=== PATIENT | female | born 1960 | race Caucasian/White ===

== ENCOUNTER 2016-07-03 13:21 | Emergency (ER) | payer BC ==
[2016-07-03] MEDS ORDERED: KETOROLAC 60 MG/2 ML VIAL IM STA (15:03)
--- NOTE | 2016-07-03 15:06 | ED Physician Documentation ---
PD HPI UPPER EXT INJURY - Stated complaint Stated Complaint: SHOULDER PX - Chief complaint Chief Complaint: Ext Problem - History obtained from History obtained from: Patient - History of Present Illness Location: Right, Shoulder Type of injury: Other (states threw a juniper briceno and then flexed her muscles, felt a pop and now increased pain.) Where injury occurred: Home Timing - onset: Today Timing - duration: Hours (1) Timing - details: Abrupt onset Pain level max: 8 Pain level now: 8 Improved by: Rest, Ice, Immobilization Worsened by: Moving, Palpating Associated symptoms: No: Weakness, Numbness, Tingling, Swelling Contributing factors: No: Anticoagulated, Prior ortho surgery, Prosthetic joint Similar symptoms before: Has not had sx before Recently seen: Not recently seen Review of Systems Constitutional: denies: Fever Skin: denies: Rash Musculoskeletal: denies: Neck pain, Back pain Neurologic: denies: Focal weakness, Numbness, Headache PD PAST MEDICAL HISTORY - Past Medical History Past Medical History: Yes Musculoskeletal: Other Derm: Other - Past Surgical History Past Surgical History: Yes General: Cholecystectomy, Appendectomy Ortho: Spine surgery /[employer]: Hysterectomy - Present Medications Home Medications: Ambulatory Orders Medication Instructions Recorded Confirmed Cyclobenzaprine [Flexeril] 10 mg PO TID PRN #20 tablet 07/03/16 Hydrocodone/Acetaminophen 1 - 2 each PO Q6H PRN #14 tablet 07/03/16 [Hydrocodon-Acetaminophen 5-325] - Allergies Allergies/Adverse Reactions: Allergies Allergy/AdvReac Type Severity Reaction Status Date / Time citalopram hydrobromide * AdvReac Severe Hives Verified 07/03/16 13:40 [From Celexa] prochlorperazine maleate * AdvReac Intermediate Anxiety Verified 07/03/16 13:40 [From Compazine] - Social History Does the pt smoke?: No Smoking Status: Never smoker Does the pt drink ETOH?: No Does the pt have substance abuse?: No - Immunizations Immunizations are current?: Yes - POLST Patient has POLST: No PD ED PE NORMAL - Vitals Vital signs reviewed: Yes - General General: Alert and oriented X 3, No acute distress - Neck Neck: Supple, no meningeal sign - Cardiac Cardiac: RRR - Respiratory Respiratory: No respiratory distress, Clear bilaterally - Derm Derm: Warm and dry - Extremities Extremities: Other (R shoulder - Diffuse glenohumeral joint TTP. Very limited ROM 2/2 pain. NVI. No gross deformity.) - Neuro Neuro: Alert and oriented X 3 - Psych Psych: Normal mood, Normal affect Results - Vitals Vitals: Vital Signs - 24 hr 07/03/16 07/03/16 13:35 15:41 Temperature 36.6 C 36.6 C Heart Rate 67 63 Respiratory 18 16 Rate Blood Pressure 147/98 H 138/70 H O2 Saturation 99 98 Oxygen O2 Source Room air - Rads (name of study) R shoulder xray Radiology: Prelim report reviewed, EMP read contemporaneously, See rad report ( Normal shoulder radiography. ) PD MEDICAL DECISION MAKING - ED course Complexity details: reviewed results, re-evaluated patient, considered differential, d/w patient ED course: Patient is a 56-year-old female who presents to the emergency department with an acute right shoulder injury. Multiple possibilities, but as her exam is severely limited secondary to pain, will place her in a sling and on pain medication for home and have her reexamined once the swelling decreases. No acute findings on x-ray. Neurovascularly intact. Possible rotator cuff injury , possible tendon tear? Patient counseled regarding signs and symptoms for which I believe and urgent re-evaluation would be necessary. Patient with good understanding of and agreement to plan and is comfortable going home at this time This document was made in part using voice recognition software. While efforts are made to proofread this document, sound alike and grammatical errors may occur. Departure - Departure Disposition: 01 Home, Self Care Clinical Impression: Shoulder strain Qualifiers: Encounter type: initial encounter Laterality: right Qualified Code(s): S46.911A - Strain of unspecified muscle, fascia and tendon at shoulder and upper arm level, right arm, initial encounter Condition: Good Instructions: ED Sprain Shoulder Follow-Up: Love Britt PA-C [Primary Care Provider] - Within 1 week Prescriptions: Cyclobenzaprine [Flexeril] 10 mg PO TID PRN #20 tablet PRN Reason: Spasms Hydrocodone/Acetaminophen [Hydrocodon-Acetaminophen 5-325] 1 - 2 each PO Q6H PRN #14 tablet PRN Reason: pain Comments: Return if you worsen. Wear the sling for the next 3-4 days and then start to gently move her shoulder. It is important that you have a repeat evaluation as the swelling and pain limit our evaluation today. Do not drink alcohol or drive while on narcotic pain medicine. Note that many narcotic pain relievers also contain tylenol/acetaminophen. Please ensure that your total dose of acetaminophen from all sources does not exceed 3 grams (3000mg) per day. You may constipated on this medication, take a stool softener such as "Colace" twice a day while you are on it. Also recommend a cmod-ydl-gffwkny laxative such as senna or MiraLAX any day that you do not have a bowel movement. If you received narcotic pain medication in the emergency department, do not drive or operate machinery for the next 24 hours. Discharge Date/Time: 07/03/16 16:09
[2016-07-03] MEDS ORDERED: KETOROLAC 60 MG/2 ML VIAL ONE (15:22)
--- NOTE | 2016-07-03 15:34 | XRAY Preliminary Report ---
Exam: XR Shoulder 3 View RT IMPRESSION: Normal shoulder radiography. [facility] SITE ID: [id number]
--- NOTE | 2016-07-03 15:38 | XRAY Report ---
EXAM: RIGHT SHOULDER RADIOGRAPHY EXAM DATE: 07/03/2016 02:59 PM. CLINICAL HISTORY: Patient lifted her arm above her head with sudden onset of pain and a "pop". COMPARISON: None. TECHNIQUE: 3 views. FINDINGS: Bones: Normal. No fracture or bone lesion. Joints: The glenohumeral and acromioclavicular joints are normal. Soft tissues: The visualized hemithorax is unremarkable. No soft tissue swelling. IMPRESSION: Normal shoulder radiography. [facility] Referring Provider Line: [phone] SITE ID: [id number]
[2016-07-03 15:44] VITALS: BP 138/70
== END 2016-07-03 16:09 | disposition home or self-care (01) ==
LOC: ED 13:21
DX: S46.911A Strain of unspecified muscle, fascia and tendon at shoulder and upper arm level, right arm, initial encounter (principal); X50.0XXA Overexertion from strenuous movement or load, initial encounter
CPT/HCPCS: 96372; 99283

== ENCOUNTER 2016-07-11 15:47 | Outpatient (CLI) | payer OTHER, BC ==
[2016-07-11] MEDS ORDERED: GADOBUTROL 10 MMOL/10 ML SYRINGE IVP ONE (16:51)
--- NOTE | 2016-07-11 18:35 | MRI Report ---
EXAM: MRI LUMBAR SPINE WITHOUT AND WITH CONTRAST EXAM DATE: 07/11/2016 04:00 PM. CLINICAL HISTORY: 56-year-old with prior lumbar surgery presenting with back pain COMPARISONS: None. TECHNIQUE: Multiplanar, multisequence T1-weighted and fluid-sensitive sequences of the lumbar spine f rom T12 to S1 before and after administration of intravenous contrast. IV contrast: 9 cc GADAVIST. Ot her: None. FINDINGS: Spinal Cord: The conus terminates at L1-2. No signal abnormality in the visualized spinal cord. Alignment: There is grade 1 anterolisthesis of L5 on S1. No definite scoliotic curvature. Bone Marrow: Five mvz-vmd-nuevjxo lumbar vertebral bodies are assumed. There are postsurgical changes of L4-S1 posterior spinal instrumentation fusion as well as L4-S1 laminectomy. There are bilateral L 4, L5, and S1 pedicle screws is associated susceptibility artifact but technically limits evaluation of the surrounding tissues. There is also lack of fat saturation due to the metallic screws that tech nically limited evaluation of fat-saturated sequences. There appears to be bony fusion of L5 on S1. There is mild to moderate endplate degenerative changes seen at L4-L5. No definite bone marrow edema seen. No definite abnormal marrow enhancement. No acute fracture. Disk Levels/Facets: T12-L1: No significant endplate degenerative changes. Preservation of disk height. Slight disk desicc ation. No disk protrusion or spinal canal stenosis. No neural foraminal narrowing. L1-L2: No significant endplate degenerative changes. Preservation of disk height. Slight disk desicca tion. No significant disk protrusion or spinal canal stenosis. No neural foraminal narrowing. Minimal bilateral arthritic facet disease. L2-L3: No significant endplate degenerative changes. Disk height appears preserved. Slight disk desic cation. No disk protrusion or spinal canal stenosis. No neural foraminal narrowing. Mild bilateral ar thritic facet disease. L3-L4: Minimal endplate degenerative changes. Diskitis preserved. Disk desiccation. Small posterior d isk bulge as well as ligamentum flavum thickening, facet disease, and prominent dorsal epidural fat p roducing minimal spinal canal stenosis. No definite neural foraminal narrowing. L4-L5: Mild to moderate atelectatic changes with loss of disk height and disk desiccation. Surgical d ecompression of the thecal sac. There is a non-enhancing fluid collection seen within the surgical be d that measures 3.3 x 4.1 x 0.5 cm (CC by TR by AP). The fluid collection has minimal extension into the lateral epidural space. There is no spinal canal stenosis. No definite enhancing soft tissue seen within the ventral epidural space, lateral epidural space, or neural foramina. Evaluation of the she ral foramina is limited but appears to be mild bilateral neural foraminal narrowing with no significa nt mass effect on the exiting L4 nerve roots. L5-S1: . Fusion of the endplates. Surgical decompression of the thecal sac. Uncovering of the endplat e. Slight posterior disk bulge is slight effacement of ventral thecal sac. As detailed above there is a fluid collection seen within the surgical bed that extends to the dorsal epidural space with sligh t extension into the lateral epidural spaces. No definite enhancing soft tissue seen within the ventr al epidural space, neural foramina, or lateral epidural space. No spinal canal stenosis. There appear s to be moderate bilateral neural foraminal narrowing. Spinal Canal: No enhancing masses within the spinal canal. No epidural abscess. Musculature: There is extensive fatty atrophy of the paraspinal musculature beginning at L4 and exten ding to the sacrum, greater on the left. There is edema seen within the musculature it is likely post surgical in nature. Other: The visualized pelvic cavity is unremarkable. IMPRESSION: 1. Post surgical changes of L4-S1 posterior spinal instrumented fusion and L4-L5 and L5-S1 laminectom y. Bilateral pedicle screws are seen at L4, L5, and S1 with associated susceptibility artifact that t echnically limits evaluation. 2. There is nonenhancing fluid collection seen within the surgical bed that measures 3.3 x 4.1 x 0.5 cm (cc by TRV by AP) that extends to the dorsal epidural space of L4-L5 and L5-S1 with slight extensi on into the lateral epidural space. There is no mass effect on the thecal sac. No convincing evidence of postsurgical epidural fibrosis. 3. At L4-L5 there are surgical changes with no definite spinal canal stenosis seen. Evaluation of the neural foramina is limited due to susceptibility artifact but there appears to be mild bilateral she roforaminal narrowing. 4. At L5-S1 there are surgical changes with no definite spinal canal stenosis seen. Evaluation of the neuroforamina is limited due to susceptibility artifact, but there appears to be moderate bilateral neural foraminal narrowing. 5. Remainder of lumbar spine demonstrates no significant spinal canal stenosis or neural foraminal na rrowing. Comment: The following findings are so common in adults without low back pain that while we report th eir presence, they must be interpreted with caution and in the context of the clinical situation. (Re sandra Cullen et al, Spine 2001) Prevalence of findings in patients without low back pain: Disk degeneration (any evidence): 92% Disk desiccation/T2 signal loss: 83% Disk height loss: 56% Disk bulge: 64% Disk protrusion: 32% Annular tear/high intensity zone: 38% [facility] Referring Provider Line: [phone] SITE ID: [id number]
== END 2016-07-11 15:48 | disposition home or self-care (01) ==
LOC: DI 15:47
PROVIDERS: ATTEND Physician Assistant Medical
DX: M47.896 Other spondylosis, lumbar region (principal); M51.36 Other intervertebral disc degeneration, lumbar region; Z98.1 Arthrodesis status
CPT/HCPCS: 72158; A9585

== ENCOUNTER 2016-11-10 17:03 | Outpatient (CLI) | payer BC, OTHER ==
--- NOTE | 2016-11-10 19:17 | CT Preliminary Report ---
Exam: CT Head W/O IMPRESSION: No acute intracranial CT abnormality. There is no evidence of hemorrhage or mass effect. [facility] SITE ID: [id number]
--- NOTE | 2016-11-10 19:20 | CT Report ---
EXAM: CT HEAD EXAM DATE: 11/10/2016 05:27 PM. CLINICAL HISTORY: HEADACHE. COMPARISON: 08/24/2015. TECHNIQUE: Multiaxial CT images were obtained from the foramen magnum to the vertex. IV contrast: Non e. Reformats: Coronal. In accordance with CT protocol optimization, one or more of the following dose reduction techniques w ere utilized for this exam: automated exposure control, adjustment of mA and/or KV based on patient s ize, or use of iterative reconstructive technique. FINDINGS: Parenchyma: No intraparenchymal hemorrhage. No evidence of mass, midline shift, or CT findings of inf arction. Pichardo-white differentiation is distinct. Extraaxial Spaces: Normal for age. No subdural or epidural collections identified. Ventricles: Normal in size and position. Sinuses: Imaged paranasal sinuses, orbits, and mastoids show no significant abnormality. Bones: No evidence of fracture or calvarial defect. Other: None. IMPRESSION: No acute intracranial CT abnormality. There is no evidence of hemorrhage or mass effect. [facility] Referring Provider Line: [phone] SITE ID: [id number]
== END 2016-11-10 17:04 | disposition home or self-care (01) ==
LOC: DI 17:03
PROVIDERS: ATTEND Physician Assistant Medical
DX: R51 Headache (principal)
CPT/HCPCS: 70450

== ENCOUNTER 2017-03-30 12:04 | Outpatient (CLI) | payer BC ==
[2017-03-30 12:28] LABS: BASOPHILS % (AUTO) 0.5 %; EOSINOPHILS # (AUTO) 0.1 10^3/uL (0.0-0.7); EOSINOPHILS % (AUTO) 1.7 %; LYMPHOCYTES # (AUTO) 1.8 10^3/uL (1.5-3.5); LYMPHOCYTES % (AUTO) 31.4 %; MEAN CORPUSCULAR HEMOGLOBIN 29.5 pg (27.0-31.0); MEAN CORPUSCULAR HGB CONC 34.2 g/dL (32.0-36.0); MEAN CORPUSCULAR VOLUME 86.4 fL (81.0-99.0); MEAN PLATELET VOLUME 8.1 fL (7.9-10.8); MONOCYTES # (AUTO) 0.3 10^3/uL (0.0-1.0); MONOCYTES % (AUTO) 5.3 %; NEUTROPHILS # (AUTO) 3.5 10^3/uL (1.5-6.6); NEUTROPHILS % (AUTO) 61.1 %; PLT - PLATELET COUNT 195 10^3/uL (130-450); RED BLOOD COUNT 4.73 10^6/uL (4.20-5.40); RED CELL DISTRIBUTION WIDTH 13.4 % (12.0-15.0); WHITE BLOOD COUNT 5.7 x10^3/uL (4.8-10.8)
[2017-03-30 12:51] LABS: ALBUMIN 4.5 g/dL (3.2-5.5); ALBUMIN/GLOBULIN RATIO 1.5 (1.0-2.2); ALKALINE PHOSPHATASE 56 IU/L (42-121); ALT ALANINE AMINOTRANSFERASE 26 IU/L (10-60); AST ASPARTATE AMINOTRANSFERASE 24 IU/L (10-42); BILIRUBIN,TOTAL 0.6 mg/dL (0.2-1.0); BUN - BLOOD UREA NITROGEN 11 mg/dL (6-20); CALCIUM 9.7 mg/dL (8.5-10.3); CARBON DIOXIDE - CO2 22 mmol/L (21-32); CHLORIDE 106 mmol/L (101-111); CHOL/HDL RATIO 3.5 (<4.4); CHOLESTEROL 220 mg/dL; CREATININE 0.6 mg/dL (0.4-1.0); GFR - MDRD 104 (>89); GLUCOSE 111 mg/dL (70-100); HDL CHOLESTEROL 63 mg/dL; LDL CHOLESTEROL,CALCULATED 130 mg/dL; LDL/HDL RATIO 2.1 (<4.4); SODIUM 139 mmol/L (135-145); TOTAL PROTEIN 7.6 g/dL (6.7-8.2); VLDL CHOLESTEROL 27 mg/dL
[2017-03-31 13:03] LABS: HEPATITIS C ANTIBODY NON-REACTIVE (NON-REACTIVE)
== END 2017-03-30 12:05 | disposition home or self-care (01) ==
LOC: LAB 12:04
PROVIDERS: ATTEND Physician Assistant Medical
DX: Z00.00 Encounter for general adult medical examination without abnormal findings (principal); F32.9 Major depressive disorder, single episode, unspecified; Z11.59 Encounter for screening for other viral diseases; Z72.89 Other problems related to lifestyle
CPT/HCPCS: 36415; 80053; 80061; 82306; 83721; 84443; 85025; 86803

== ENCOUNTER 2017-04-06 11:35 | Outpatient (CLI) | payer BC ==
--- NOTE | 2017-04-07 19:13 | Mammography Report ---
DIGITAL SCREENING MAMMOGRAM: 04/06/2017 CLINICAL INDICATION: A 57-year-old nulliparous patient for screening. COMPARISON: 08/2015, 02/2010. TECHNIQUE: Routine CC and MLO projections were obtained of the breasts. FINDINGS: Scattered fibroglandular tissue is present within the breasts. There are no dominant masses, suspicious microcalcifications, or secondary signs of malignancy. In comparison to the previous studies, there are no significant changes. ASSESSMENT: NO MAMMOGRAPHIC EVIDENCE OF MALIGNANCY. NO SIGNIFICANT INTERVAL CHANGES. RECOMMENDATION: Screening mammography is recommended annually. BIRADS category 1 - negative. STANDARD QUALIFYING STATEMENTS: 1. This examination was reviewed with the aid of Computed-Aided Detection (CAD). 2. A negative or benign imaging report should not delay biopsy if clinically suspicious findings are present. Consider surgical consultation if warranted. More than 5% of cancers are not identified by imaging. 3. Dense breasts may obscure an underlying neoplasm. TD: 04/07/2017 19:11
== END 2017-04-06 11:36 | disposition home or self-care (01) ==
LOC: DI 11:35
PROVIDERS: ATTEND Physician Assistant Medical
DX: Z12.31 Encounter for screening mammogram for malignant neoplasm of breast (principal)
CPT/HCPCS: 77067

== ENCOUNTER 2017-05-14 06:54 | Day surgery (SDC) | payer BC ==
[2017-05-14] MEDS ORDERED: LACTATED RINGERS 1,000 ML IV ONE (07:07)
[2017-05-14] MEDS ORDERED: PROPOFOL 200 MG/20 ML VIAL IVP ONE (09:00)
[2017-05-14 09:37] VITALS: BP 114/73
== END 2017-05-14 06:55 | disposition home or self-care (01) ==
LOC: SDS 06:54
PROVIDERS: ATTEND Surgery
PROC: 0DBH8ZX Excision of Cecum, Via Natural or Artificial Opening Endoscopic, Diagnostic (ICD-10-PCS; principal; 2017-05-14 08:15)
DX: Z12.11 Encounter for screening for malignant neoplasm of colon (principal); K63.5 Polyp of colon; K64.8 Other hemorrhoids; K57.30 Diverticulosis of large intestine without perforation or abscess without bleeding
CPT/HCPCS: 45380; J7120

== ENCOUNTER 2017-07-24 12:36 | Emergency (ER) | payer BC ==
--- NOTE | 2017-07-24 14:54 | ED Physician Documentation ---
History of Present Illness - Stated complaint Stated Complaint: FACE SWELLING/RASH - Chief complaint Chief Complaint: General - History obtained from History obtained from: Patient - History of Present Illness Timing: Last night Pain level max: 3 Pain level now: 3 Improved by: nothing Worsened by: movement, itching - Additonal information Additional information: Patient is a 57-year-old female who presents to the emergency department with an itching face and neck since last night. Has not taken anything for this. She also has noted swelling and pain to the right hand. Has been gardening recently. Tetanus is up-to-date. She was recently trialed on Epiduo for skin blemishes. 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 - Present Medications Home Medications: Ambulatory Orders Medication Instructions Recorded Confirmed Gabapentin [Neurontin] 300 mg PO TID 05/13/17 05/13/17 Doxycycline Hyclate 100 mg PO BID #14 tablet 07/24/17 predniSONE [Prednisone] 40 mg PO DAILY #10 tablet 07/24/17 - Allergies Allergies/Adverse Reactions: Allergies Allergy/AdvReac Type Severity Reaction Status Date / Time citalopram hydrobromide * AdvReac Severe Hives Verified 07/24/17 13:13 [From Celexa] prochlorperazine maleate * AdvReac Intermediate Anxiety Verified 07/24/17 13:13 [From Compazine] - Social History Does the pt smoke?: No Smoking Status: Never smoker Does the pt drink ETOH?: No Does the pt have substance abuse?: No - Immunizations Immunizations are current?: Yes - POLST Patient has POLST: No PD ED PE NORMAL - Vitals Vital signs reviewed: Yes - General General: Alert and oriented X 3, No acute distress - HEENT HEENT: Moist mucous membranes, Pharynx benign - Neck Neck: Supple, no meningeal sign, No adenopathy - Cardiac Cardiac: RRR, Strong equal pulses - Respiratory Respiratory: No respiratory distress, Clear bilaterally, Other (No stridor. No wheezing) - Abdomen Abdomen: Soft, Non tender, Non distended - Derm Derm: Warm and dry, Other (Excoriation melendez with mild erythema to the face and neck. Appears to have maculopapular exanthem. Also has swelling to the right hand over the dorsum. No palmar tenderness. Full range of motion of the fingers without significant pain. No tenderness along the tendons. Neurovascularly intact. There is a small abrasion near the wrist.) - Extremities Extremities: No deformity - Neuro Neuro: Alert and oriented X 3 Results - Vitals Vitals: Vital Signs - 24 hr 07/24/17 07/24/17 13:09 15:05 Temperature 36.4 C L 36.4 C L Heart Rate 60 60 Respiratory 18 17 Rate Blood Pressure 134/67 H 103/88 H O2 Saturation 97 96 Oxygen O2 Source Room air PD MEDICAL DECISION MAKING - ED course Complexity details: considered differential, d/w patient ED course: Patient is a 57-year-old female who presents to the emergency department what appears to be contact dermatitis to the face and neck. Her pillowcase was also discolored and she thinks it may be something from that. Will trial her on steroids for home. She also appears to have swelling of the right hand with an abrasion, possible cellulitis? No evidence of deep space infection in the hand. We will trial her on a short course of antibiotics and see how she progresses. Her tetanus is up-to-date. We will have her follow-up with her doctor for repeat evaluation and further care. Patient counseled regarding signs and symptoms for which I believe and urgent re-evaluation would be necessary. Patient with good understanding of and agreement to plan and is comfortable going home at this time This document was made in part using voice recognition software. While efforts are made to proofread this document, sound alike and grammatical errors may occur. - Sepsis Event Vital Signs: Vital Signs - 24 hr 07/24/17 07/24/17 13:09 15:05 Temperature 36.4 C L 36.4 C L Heart Rate 60 60 Respiratory 18 17 Rate Blood Pressure 134/67 H 103/88 H O2 Saturation 97 96 Oxygen O2 Source Room air Departure - Departure Disposition: 01 Home, Self Care Clinical Impression: Contact dermatitis Qualifiers: Contact dermatitis type: unspecified Contact dermatitis trigger: unspecified trigger Qualified Code(s): L25.9 - Unspecified contact dermatitis, unspecified cause Cellulitis Qualifiers: Site of cellulitis: extremity Site of cellulitis of extremity: upper extremity Laterality: right Qualified Code(s): L03.113 - Cellulitis of right upper limb Condition: Good Instructions: ED Infec Skin Cellulitis, ED Dermatitis Non Specific Rash Follow-Up: Love Britt PA-C [Primary Care Provider] - Within 3 Days (for wound check) Prescriptions: Doxycycline Hyclate 100 mg PO BID #14 tablet predniSONE [Prednisone] 40 mg PO DAILY #10 tablet Comments: Take all antibiotics until gone. Return if you worsen. Follow-up with your doctor in 3 days for a wound check. Discharge Date/Time: 07/24/17 15:05
[2017-07-24 15:06] VITALS: BP 103/88
== END 2017-07-24 15:05 | disposition home or self-care (01) ==
LOC: ED 12:36
DX: L25.9 Unspecified contact dermatitis, unspecified cause (principal); L03.113 Cellulitis of right upper limb; M79.7 Fibromyalgia
CPT/HCPCS: 99283

== ENCOUNTER 2017-10-22 09:53 | Outpatient (CLI) | payer BC ==
[2017-10-22 10:19] LABS: BILIRUBIN,URINE NEGATIVE (NEGATIVE); GLUCOSE, URINE (UA) NEGATIVE (NEGATIVE); KETONES,URINE (UA) NEGATIVE (NEGATIVE); LEUKOCYTE ESTERASE, URINE NEGATIVE (NEGATIVE); NITRITE,URINE NEGATIVE (NEGATIVE); OCCULT BLOOD,URINE SMALL (NEGATIVE); PROTEIN,URINE NEGATIVE (NEGATIVE); UROBILINOGEN,URINE 0.2 (NORMAL) E.U./dL (NORMAL)
[2017-10-22 10:22] LABS: BASOPHILS % (AUTO) 0.5 %; EOSINOPHILS # (AUTO) 0.1 10^3/uL (0.0-0.7); EOSINOPHILS % (AUTO) 1.7 %; HGB - HEMOGLOBIN 13.5 g/dL (12.0-16.0); LYMPHOCYTES # (AUTO) 2.3 10^3/uL (1.5-3.5); MEAN CORPUSCULAR HEMOGLOBIN 29.9 pg (27.0-31.0); MEAN CORPUSCULAR HGB CONC 34.4 g/dL (32.0-36.0); MEAN CORPUSCULAR VOLUME 86.9 fL (81.0-99.0); MEAN PLATELET VOLUME 8.3 fL (7.9-10.8); MONOCYTES # (AUTO) 0.4 10^3/uL (0.0-1.0); MONOCYTES % (AUTO) 6.1 %; NEUTROPHILS % (AUTO) 57.7 %; PLT - PLATELET COUNT 208 10^3/uL (130-450); RED BLOOD COUNT 4.53 10^6/uL (4.20-5.40); RED CELL DISTRIBUTION WIDTH 13.7 % (12.0-15.0); WHITE BLOOD COUNT 6.9 x10^3/uL (4.8-10.8)
[2017-10-22 10:50] LABS: ALBUMIN 4.7 g/dL (3.2-5.5); ALBUMIN/GLOBULIN RATIO 1.6 (1.0-2.2); ALKALINE PHOSPHATASE 63 IU/L (42-121); ALT ALANINE AMINOTRANSFERASE 21 IU/L (10-60); AST ASPARTATE AMINOTRANSFERASE 22 IU/L (10-42); BILIRUBIN,TOTAL 0.6 mg/dL (0.2-1.0); BUN - BLOOD UREA NITROGEN 15 mg/dL (6-20); CALCIUM 9.5 mg/dL (8.5-10.3); CARBON DIOXIDE - CO2 27 mmol/L (21-32); CHLORIDE 100 mmol/L (101-111); CREATININE 0.8 mg/dL (0.4-1.0); GFR - MDRD 74 (>89); GLUCOSE 109 mg/dL (70-100); LIPASE 30 U/L (22-51); SODIUM 136 mmol/L (135-145); TOTAL PROTEIN 7.7 g/dL (6.7-8.2)
[2017-10-22 10:51] LABS: CLARITY,URINE CLEAR (CLEAR); RBC,URINE 0-5 /HPF (0-5); SQUAMOUS EPITHELIAL CELL,UR RARE Squamous (<= Few)
[2017-10-22 10:51] LABS: CRP - C-REACTIVE PROTEIN < 1.0 mg/dL (0-1.0)
[2017-10-22 10:52] LABS: BACTERIA,URINE Rare /HPF (None Seen)
== END 2017-10-22 09:54 | disposition home or self-care (01) ==
LOC: LAB 09:53
PROVIDERS: ATTEND Physician Assistant Medical
DX: R10.32 Left lower quadrant pain (principal)
CPT/HCPCS: 36415; 80053; 81001; 83690; 85025; 85651; 86140; 87086

== ENCOUNTER 2017-10-22 11:42 | Outpatient (CLI) | payer BC ==
[2017-10-22] MEDS ORDERED: IOPAMIDOL-300 50 ML VIAL ONE (11:44)
[2017-10-22] MEDS ORDERED: IOPAMIDOL-300 100 ML VIAL ONE (11:44)
--- NOTE | 2017-10-22 14:06 | CT Report ---
Reason: NAUSEA AND VOMITING,ABDOMINAL PAIN,LEFT LOWER QUAD Procedure Date: 10/22/2017 Accession Number: [id number] / [id number] Procedure: CT - Abdomen/Pelvis W/ CPT Code: FULL RESULT: EXAM: CT ABDOMEN AND PELVIS EXAM DATE: 10/22/2017 01:33 PM. CLINICAL HISTORY: NAUSEA AND VOMITING,ABDOMINAL PAIN,LEFT LOWER QUAD. COMPARISONS: CT ABD AND PELVIS WITH CONTRAST 05/23/2012. TECHNIQUE: Routine helical CT imaging was performed through the abdomen and pelvis. IV contrast: ISOVUE 300 100mL. Enteric contrast: Yes. Reconstructions: Coronal and sagittal. In accordance with CT protocol optimization, one or more of the following dose reduction techniques were utilized for this exam: automated exposure control, adjustment of mA and/or KV based on patient size, or use of iterative reconstructive technique. FINDINGS: Lung Bases: Unremarkable. Liver: Diffusely decreased parenchymal attenuation. Stable 13 mm well-circumscribed hypodense lesion in the inferior tip of the right lobe. Gallbladder/Bile Ducts: The gallbladder is surgically absent. Normal postcholecystectomy biliary tree. Spleen: Normal. Pancreas: Normal. Adrenal Glands: Normal. 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 No left hydronephrosis or perinephric stranding. Mildly malrotated right kidney; otherwise no significant abnormality. Peritoneal Cavity/Bowel: No ascites or pneumoperitoneum. No bowel obstruction or abnormal stool burden. No focal inflammatory fat stranding. The appendix is not visualized. Pelvic Organs: The patient appears to be status post hysterectomy. The urinary bladder is unremarkable. Vasculature: No aneurysms or other significant abnormality. Bones: Posterior fusion L4-S1. Stable grade 1 anterolisthesis of L5 on S1. No acute osseous abnormality or aggressive osseous lesion. Other: None. IMPRESSION: 1. No evidence of acute abnormality in the abdomen or pelvis. No significant change from prior. 2. Hepatic steatosis. [facility]
[2017-10-22] MEDS ORDERED: IOPAMIDOL-300 100 ML VIAL IVP ONE (19:04)
[2017-10-22] MEDS ORDERED: IOPAMIDOL-300 50 ML VIAL PO ONE (19:04)
== END 2017-10-22 11:43 | disposition home or self-care (01) ==
LOC: DI 11:42
PROVIDERS: ATTEND Physician Assistant Medical
DX: R11.2 Nausea with vomiting, unspecified (principal); R10.32 Left lower quadrant pain; K76.0 Fatty (change of) liver, not elsewhere classified
CPT/HCPCS: 36415; 74177; 80053; 81001; 83690; 85025; 85651; 86140; Q9967; 87086

== ENCOUNTER 2018-04-01 11:20 | Outpatient (CLI) | payer BC ==
[2018-04-01 11:48] LABS: BASOPHILS # (AUTO) 0.2 10^3/uL (0.0-0.1); BASOPHILS % (AUTO) 3.1 %; EOSINOPHILS # (AUTO) 0.1 10^3/uL (0.0-0.7); EOSINOPHILS % (AUTO) 1.5 %; HGB - HEMOGLOBIN 14.3 g/dL (12.0-16.0); LYMPHOCYTES # (AUTO) 2.5 10^3/uL (1.5-3.5); LYMPHOCYTES % (AUTO) 31.1 %; MEAN CORPUSCULAR HEMOGLOBIN 29.7 pg (27.0-31.0); MEAN CORPUSCULAR HGB CONC 35.8 g/dL (32.0-36.0); MEAN CORPUSCULAR VOLUME 83.1 fL (81.0-99.0); MEAN PLATELET VOLUME 8.2 fL (7.9-10.8); MONOCYTES # (AUTO) 0.3 10^3/uL (0.0-1.0); MONOCYTES % (AUTO) 3.8 %; NEUTROPHILS # (AUTO) 4.8 10^3/uL (1.5-6.6); NEUTROPHILS % (AUTO) 60.5 %; PLT - PLATELET COUNT 203 10^3/uL (130-450); RED BLOOD COUNT 4.83 10^6/uL (4.20-5.40); RED CELL DISTRIBUTION WIDTH 13.2 % (12.0-15.0); WHITE BLOOD COUNT 7.9 x10^3/uL (4.8-10.8)
[2018-04-01 12:18] LABS: ALBUMIN 4.8 g/dL (3.2-5.5); ALBUMIN/GLOBULIN RATIO 1.5 (1.0-2.2); ALKALINE PHOSPHATASE 64 IU/L (42-121); ALT ALANINE AMINOTRANSFERASE 23 IU/L (10-60); AST ASPARTATE AMINOTRANSFERASE 22 IU/L (10-42); BUN - BLOOD UREA NITROGEN 19 mg/dL (6-20); CALCIUM 9.8 mg/dL (8.5-10.3); CARBON DIOXIDE - CO2 25 mmol/L (21-32); CHLORIDE 105 mmol/L (101-111); CHOL/HDL RATIO 2.9 (<4.4); CHOLESTEROL 225 mg/dL; CREATININE 0.6 mg/dL (0.4-1.0); GFR - MDRD 103 (>89); GLUCOSE 109 mg/dL (70-100); HDL CHOLESTEROL 77 mg/dL; LDL CHOLESTEROL,CALCULATED 118 mg/dL; LDL/HDL RATIO 1.5 (<4.4); SODIUM 138 mmol/L (135-145); TOTAL PROTEIN 8.1 g/dL (6.7-8.2); VLDL CHOLESTEROL 30 mg/dL
== END 2018-04-01 11:21 | disposition home or self-care (01) ==
LOC: LAB 11:20
PROVIDERS: ATTEND Physician Assistant Medical
DX: Z00.00 Encounter for general adult medical examination without abnormal findings (principal); E55.9 Vitamin D deficiency, unspecified; Z79.899 Other long term (current) drug therapy
CPT/HCPCS: 36415; 80053; 80061; 82306; 83721; 84443; 85025

== ENCOUNTER 2018-09-07 17:24 | Emergency (ER) | payer BC ==
[2018-09-07 17:44] VITALS: BP 162/94
[2018-09-07] MEDS ORDERED: carBAMazepine 200 MG TABLET PO STA (18:08)
--- NOTE | 2018-09-07 18:10 | ED Physician Documentation ---
History of Present Illness - Stated complaint Stated Complaint: PX BEHIND LF EAR - Chief complaint Chief Complaint: General - History obtained from History obtained from: Patient - History of Present Illness Timing: Yesterday (Since yesterday at 10 AM she has had intermittent left facial pain. Its shocklike burning pain radiating from the left mastoid sometimes down to the jaw or behind the eye. It lasts for 5 to 30 seconds at a time. It often comes in clusters. It is often triggered by something touching the face on the left. She had never had this before. 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 - Present Medications Home Medications: Ambulatory Orders Medication Instructions Recorded Confirmed Gabapentin [Neurontin] 300 mg PO TID 05/13/17 05/13/17 Doxycycline Hyclate 100 mg PO BID #14 tablet 07/24/17 predniSONE [Prednisone] 40 mg PO DAILY #10 tablet 07/24/17 Carbamazepine [Equetro] 200 mg PO BID #60 cpmp.12hr 09/07/18 - Allergies Allergies/Adverse Reactions: Allergies Allergy/AdvReac Type Severity Reaction Status Date / Time citalopram hydrobromide * AdvReac Severe Hives Verified 07/24/17 13:13 [From Celexa] prochlorperazine maleate * AdvReac Intermediate Anxiety Verified 07/24/17 13:13 [From Compazine] - Social History Does the pt smoke?: No Smoking Status: Never smoker Does the pt drink ETOH?: No Does the pt have substance abuse?: No - Immunizations Immunizations are current?: Yes - POLST Patient has POLST: No PD ED PE NORMAL - Vitals Vital signs reviewed: Yes - General General: Alert and oriented X 3, No acute distress - HEENT HEENT: PERRL, EOMI, Ears normal, Moist mucous membranes, Pharynx benign - Neck Neck: Supple, no meningeal sign, No bony TTP - Neuro Neuro: Alert and oriented X 3, rn womens health 2-12 intact, No motor deficit, No sensory deficit, Normal speech Results - Vitals Vitals: Vital Signs - 24 hr 09/07/18 17:41 Temperature 36.2 C L Heart Rate 65 Respiratory 16 Rate Blood Pressure 162/94 H O2 Saturation 98 Oxygen O2 Source Room air PD MEDICAL DECISION MAKING - ED course ED course: Exam is normal. The history is very consistent with new onset trigeminal neuralgia for which she is started on carbamazepine and referred to neurology. Departure - Departure Disposition: Home, Self Care Clinical Impression: Trigeminal neuralgia of left side of face Condition: Good Record reviewed to determine appropriate education?: Yes Instructions: ED Neuralgia Trigeminal Follow-Up: Kathy Mckinnon MD [Physician No Access] - Prescriptions: Carbamazepine [Equetro] 200 mg PO BID #60 cpmp.12hr Comments: You can start the carbamazepine at 200 mg twice a day, if that is insufficient to go up to 3 times a day. If that is insufficient go to 2 tablets (400 mg) twice a day. Return for new or worsening symptoms. Your blood pressure was elevated today on check into the emergency department. This does not mean that you have hypertension, it is a common phenomenon to come to the emergency department and have elevated blood pressure. I recommend that you see your primary care physician within the week to have it rechecked when you are feeling better.
== END 2018-09-07 18:20 | disposition home or self-care (01) ==
LOC: ED 17:24
DX: G50.0 Trigeminal neuralgia (principal); R03.0 Elevated blood-pressure reading, without diagnosis of hypertension
CPT/HCPCS: 99282; 99283; A9270

== ENCOUNTER 2018-10-27 15:44 | Outpatient (CLI) | payer BC ==
[2018-10-27] MEDS ORDERED: GADOBUTROL 10 MMOL/10 ML VIAL ONE (16:31)
[2018-10-27] MEDS ORDERED: GADOBUTROL 10 MMOL/10 ML VIAL IVP ONE (17:12)
--- NOTE | 2018-10-28 15:12 | MRI Report ---
Reason: PRIMARY STABBING HEADACHE Procedure Date: 10/27/2018 Accession Number: [id number] / [id number] Procedure: MRI - Brain W/WO CPT Code: FULL RESULT: EXAM: MRI BRAIN WITHOUT AND WITH CONTRAST EXAM DATE: 10/27/2018 05:04 PM. CLINICAL HISTORY: Stabbing headache. Previous diagnosis with MRI of a cavernous malformation in the left parietal lobe. COMPARISON: BRAIN W/WO 08/24/2015 5:15 PM. TECHNIQUE: Multiplanar, multisequence T1-weighted and fluid-sensitive MR sequences of the brain were performed before and after administration of intravenous contrast. Sequences optimized for routine evaluation. Other: None. IV Contrast: Without and with 10 mL IV Gadavist. FINDINGS: Brain Volume: Normal for age. Parenchyma: Stable approximately 5 mm left parietal lobe white matter nodule with susceptibility artifact most consistent with cavernous malformation. No significant interval change. No evidence for new hemorrhage or accompanying edema. Otherwise stable unremarkable appearance of the brain. No new or acute abnormality. No abnormal enhancement. Ventricles/Cisterns: No hydrocephalus. No abnormal extra-axial fluid collection or hemorrhage. Orbits: Symmetric and unremarkable. Sella Turcica: The pituitary gland, cavernous sinuses, suprasellar cistern and optic chiasm are unremarkable. IAC: Symmetric and unremarkable. Vasculature: Normal signal flow void is seen in the major arterial structures at the skull base. The dural sinuses are patent and enhance normally. Sinuses: No acute sinus disease. Bones: No focal pathologic appearing marrow signal changes. Other: None. IMPRESSION: 1. 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 2. Findings otherwise negative and stable. RADIA
== END 2018-10-27 15:45 | disposition home or self-care (01) ==
LOC: DI 15:44
PROVIDERS: ATTEND Psychiatry & Neurology Neurology
DX: G44.85 Primary stabbing headache (principal)
CPT/HCPCS: 70553; A9585

== ENCOUNTER 2018-11-28 14:18 | Emergency (ER) | payer BC ==
[2018-11-28] MEDS ORDERED: HYDROcod/ACETAM 5/325 MG TABLET PO STA (14:39)
[2018-11-28] MEDS ORDERED: IPRATROPIUM/ALBUTEROL 3 ML NEB INH STA (14:39)
--- NOTE | 2018-11-28 14:42 | ED Physician Documentation ---
PD HPI CHEST PAIN - Stated complaint Stated Complaint: WISDOM/PRESSURE IN CHEST - Chief complaint Chief Complaint: Resp - History obtained from History obtained from: Patient - History of Present Illness Timing - onset: Other (58-year-old woman with long-standing history of tobacco abuse but no known history of heart or lung disease presents with a week and a half of a productive cough that is keeping her from sleeping and causing bilateral rib pain and a headache. No fevers. She is short of breath with exertion.) Review of Systems Constitutional: reports: Fatigue. 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 - Present Medications Home Medications: Ambulatory Orders Medication Instructions Recorded Confirmed Gabapentin [Neurontin] 300 mg PO TID 05/13/17 05/13/17 Doxycycline Hyclate 100 mg PO BID #14 tablet 07/24/17 predniSONE [Prednisone] 40 mg PO DAILY #10 tablet 07/24/17 Carbamazepine [Equetro] 200 mg PO BID #60 cpmp.12hr 09/07/18 Albuterol Sulf [Ventolin Hfa 1 - 2 puffs INH Q4HR PRN #1 inhaler 11/28/18 Inhaler] Benzonatate [Tessalon Perle] 100 - 200 mg PO TID PRN #30 capsule 11/28/18 Doxycycline Hyclate 100 mg PO BID #14 capsule 11/28/18 Oxycodone HCl/Acetaminophen 1 - 2 each PO Q6H PRN #14 tablet 11/28/18 [Percocet 5-325 mg Tablet] predniSONE [Deltasone] 20 mg PO [id number] #21 tab 11/28/18 - Allergies Allergies/Adverse Reactions: Allergies Allergy/AdvReac Type Severity Reaction Status Date / Time citalopram hydrobromide * AdvReac Severe Hives Verified 11/28/18 14:22 [From Celexa] prochlorperazine maleate * AdvReac Intermediate Anxiety Verified 11/28/18 14:22 [From Compazine] - Social History Does the pt smoke?: Yes Smoking Status: Current every day smoker Does the pt drink ETOH?: Yes Does the pt have substance abuse?: No - Immunizations Immunizations are current?: Yes - POLST Patient has POLST: No PD ED PE NORMAL - Vitals Vital signs reviewed: Yes - General General: Alert and oriented X 3, No acute distress - HEENT HEENT: Pharynx benign - Neck Neck: Supple, no meningeal sign, No bony TTP - Cardiac Cardiac: RRR, No murmur - Respiratory Respiratory: Other (Rhonchorous and wheezy throughout with moderate air motion, nonlabored) - Abdomen Abdomen: Non tender - Back Back: No CVA TTP, No spinal TTP - Extremities Extremities: No edema, No calf tenderness / cord - Neuro Neuro: Alert and oriented X 3, Normal speech Results - Vitals Vitals: Vital Signs - 24 hr 11/28/18 11/28/18 11/28/18 14:22 14:46 16:16 Temperature 36.7 C Heart Rate 62 65 62 Respiratory 16 16 20 Rate Blood Pressure 158/95 H 145/93 H O2 Saturation 96 96 Oxygen O2 Source Room air - Rads (name of study) 2v chest Radiology: EMP read contemporaneously (normal) PD MEDICAL DECISION MAKING - ED course ED course: 58-year-old woman presents with physical findings and history consistent with bronchitis. No evidence of PE or ACS. [place] better after a DuoNeb and lungs were clear. Departure - Departure Disposition: 01 Home, Self Care Clinical Impression: Bronchitis Condition: Good Record reviewed to determine appropriate education?: Yes Instructions: ED Bronchitis Asthmatic Prescriptions: Albuterol Sulf [Ventolin Hfa Inhaler] 1 - 2 puffs INH Q4HR PRN #1 inhaler PRN Reason: Shortness Of Air/Wheezing Benzonatate [Tessalon Perle] 100 - 200 mg PO TID PRN #30 capsule PRN Reason: Cough Doxycycline Hyclate 100 mg PO BID #14 capsule Oxycodone HCl/Acetaminophen [Percocet 5-325 mg Tablet] 1 - 2 each PO Q6H PRN #14 tablet PRN Reason: pain predniSONE [Deltasone] 20 mg PO [id number] #21 tab Comments: Continue your efforts to try to quit smoking. Return if worse. Follow-up with your doctor within the week. Your blood pressure was elevated today on check into the emergency department. This does not mean that you have hypertension, it is a common phenomenon to come to the emergency department and have elevated blood pressure. I recommend that you see your primary care physician within the week to have it rechecked when you are feeling better. Discharge Date/Time: 11/28/18 16:18
--- NOTE | 2018-11-28 15:28 | XRAY Report ---
Reason: cough Procedure Date: 11/28/2018 Accession Number: [id number] / [id number] Procedure: XR - Chest 2 View X-Ray CPT Code: 89553 FULL RESULT: EXAM: CHEST RADIOGRAPHY EXAM DATE: 11/28/2018 02:47 PM. CLINICAL HISTORY: Cough. COMPARISON: CHEST 2 VIEW PA/LAT 05/12/2013 6:43 PM. TECHNIQUE: 2 views. FINDINGS: Lungs/Pleura: No focal opacities evident. No pleural effusion. No pneumothorax. Normal volumes. Mediastinum: Heart and mediastinal contours are unremarkable. Other: Right upper quadrant clips IMPRESSION: Normal 2-view chest radiography. RADIA
[2018-11-28] MEDS ORDERED: KETOROLAC 60 MG/2 ML VIAL IM STA (15:34)
[2018-11-28] MEDS ORDERED: MORPHINE 2 MG/ML CARPUJECT IM STA (15:34)
[2018-11-28 16:17] VITALS: BP 145/93
== END 2018-11-28 16:18 | disposition home or self-care (01) ==
LOC: ED 14:18
DX: J40 Bronchitis, not specified as acute or chronic (principal); R03.0 Elevated blood-pressure reading, without diagnosis of hypertension; F17.200 Nicotine dependence, unspecified, uncomplicated
CPT/HCPCS: 71046; 94640; 96372; 99283; A9270

== ENCOUNTER 2019-12-19 10:49 | Outpatient (CLI) | payer BC ==
[2019-12-19 15:29] LABS: BASOPHILS # (AUTO) 0.1 10^3/uL (0.0-0.1); BASOPHILS % (AUTO) 0.8 %; EOSINOPHILS # (AUTO) 0.1 10^3/uL (0.0-0.7); EOSINOPHILS % (AUTO) 1.2 %; LYMPHOCYTES # (AUTO) 2.6 10^3/uL (1.5-3.5); LYMPHOCYTES % (AUTO) 40.7 %; MEAN CORPUSCULAR HEMOGLOBIN 30.1 pg (27.0-31.0); MEAN CORPUSCULAR HGB CONC 33.1 g/dL (32.0-36.0); MEAN PLATELET VOLUME 11.4 fL (7.9-10.8); MONOCYTES # (AUTO) 0.4 10^3/uL (0.0-1.0); MONOCYTES % (AUTO) 6.4 %; NEUTROPHILS # (AUTO) 3.3 10^3/uL (1.5-6.6); NEUTROPHILS % (AUTO) 50.6 %; PLT - PLATELET COUNT 221 10^3/uL (130-450); RED BLOOD COUNT 4.65 10^6/uL (4.20-5.40); WHITE BLOOD COUNT 6.4 x10^3/uL (4.8-10.8)
[2019-12-19 15:43] LABS: ALBUMIN 4.6 g/dL (3.2-5.5); ALBUMIN/GLOBULIN RATIO 1.4 (1.0-2.2); BILIRUBIN,TOTAL 0.7 mg/dL (0.2-1.0); CALCIUM 10.1 mg/dL (8.5-10.3); CREATININE 0.8 mg/dL (0.4-1.0); TOTAL PROTEIN 7.9 g/dL (6.7-8.2)
--- NOTE | 2019-12-19 16:22 | XRAY Report ---
PROCEDURE: Lumbar Spine 2 View INDICATIONS: BACK PAIN TECHNIQUE: 3 views of the lumbar spine were acquired. COMPARISON: None. FINDINGS: Bones: 5 [id number] vertebrae are present. There is trace anterolithesis of L4 on L5 and L5 on S1. Posterior fusion is present at L4-S1. Severe disc space narrowing is present at L4-5, L5-S1.No vertebral body compression fractures. No suspicious bony lesions. Severe foraminal narrowing is pr esent at L4-5, L5-S1. Soft tissues: Overlying bowel gas pattern is normal. No suspicious soft tissue calcifications. IMPRESSION: Posterior fusion at L4-S1 with degenerative changes as above. Reviewed by: Lenore Huizar MD on 12/19/2019 4:21 PM PST Approved by: Lenore Huizar MD on 12/19/2019 4:21 PM PST Station ID: [id number]
== END 2019-12-19 10:50 | disposition home or self-care (01) ==
LOC: DI.S 10:49
PROVIDERS: ATTEND Internal Medicine
DX: Z00.00 Encounter for general adult medical examination without abnormal findings (principal); M43.16 Spondylolisthesis, lumbar region; M43.17 Spondylolisthesis, lumbosacral region; M43.27 Fusion of spine, lumbosacral region; M51.36 Other intervertebral disc degeneration, lumbar region; M48.061 Spinal stenosis, lumbar region without neurogenic claudication; M51.37 Other intervertebral disc degeneration, lumbosacral region; M48.07 Spinal stenosis, lumbosacral region
CPT/HCPCS: 36415; 72100; 80053; 85025

== ENCOUNTER 2020-02-21 13:11 | Outpatient (CLI) | payer BC | END 2020-02-21 13:12 | disposition home or self-care (01) | LOC: COV 13:11 | PROVIDERS: ATTEND Family Medicine | DX: M79.10 Myalgia, unspecified site (principal); R53.83 Other fatigue; R68.83 Chills (without fever); R11.0 Nausea; Z20.822 Contact with and (suspected) exposure to COVID-19 ==

== ENCOUNTER 2020-05-28 15:22 | Outpatient (CLI) | payer BC ==
--- NOTE | 2020-05-28 17:00 | XRAY Report ---
PROCEDURE: Thoracic Spine 3 View INDICATIONS: BACK PAIN,THORACIC REGION TECHNIQUE: 3 views of the thoracic spine were acquired. COMPARISON: None. FINDINGS: Bones: No fractures or dislocations. No suspicious bony lesions. Mild degenerative endplate changes are noted in mid to lower thoracic spine. 12 pairs of ribs are noted, and appear intact where visual ized. Soft tissues: No paravertebral stripe thickening. 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 No compression fracture or spondylolisth esis. Reviewed by: Neal Hernandez MD on 05/28/2020 3:58 PM AKDT Approved by: Neal Hernandez MD on 05/28/2020 3:58 PM AKDT Station ID: [id number]
--- NOTE | 2020-05-28 17:17 | XRAY Report ---
PROCEDURE: Cervical Spine w/Flex/Ext INDICATIONS: CERVICAL DISC DISORDERS WITH RADICULOPATHY, CERVIC TECHNIQUE: 7 views of the cervical spine were acquired. COMPARISON: None. FINDINGS: Bones: No fractures or dislocations to the T1 level. No suspicious bony lesions. There is normal r kandis of motion between flexion and extension, with preserved normal bony alignment. Soft tissues: Prevertebral soft tissues are normal in thickness. IMPRESSION: Minimal mid cervical degenerative disc height reduction. No fracture or subluxation. Nor mal-appearing alignment on flexion and extension imaging. No prior trauma found. Reviewed by: Miguel Herman MD on 05/28/2020 5:16 PM PDT Approved by: Miguel Herman MD on 05/28/2020 5:16 PM PDT Station ID: [id number]
== END 2020-05-28 15:23 | disposition home or self-care (01) ==
LOC: DI.S 15:22
PROVIDERS: ATTEND Registered Nurse
DX: M50.30 Other cervical disc degeneration, unspecified cervical region (principal); M51.34 Other intervertebral disc degeneration, thoracic region

== ENCOUNTER 2021-04-17 08:00 | Outpatient (CLI) | payer BC ==
--- NOTE | 2021-04-18 09:48 | XRAY Report ---
PROCEDURE: Hand 3 View LT INDICATIONS: SPRAIN OF LEFT THUMB TECHNIQUE: 3 views of the hand(s) acquired. COMPARISON: None. FINDINGS: Bones: No fractures or dislocations. No suspicious bony lesions. Mild polyarticular joint space na rrowing with particular osteophyte formation. No erosive changes. Soft tissues: No suspicious soft tissue calcifications. IMPRESSION: No fracture or dislocation. Reviewed by: KHALIF Kurtz on 04/18/2021 9:47 AM PST Approved by: Sadiq Rizo MD on 04/18/2021 9:47 AM PST Station ID: [id number]
== END 2021-04-17 23:59 | disposition home or self-care (01) ==
LOC: DI.S 08:00
PROVIDERS: ATTEND Emergency Medicine
DX: S63.642A Sprain of metacarpophalangeal joint of left thumb, initial encounter (principal)

== ENCOUNTER 2021-06-28 08:00 | Outpatient (CLI) | payer BC ==
--- NOTE | 2021-06-29 02:24 | XRAY Report ---
PROCEDURE: Chest 2 View X-Ray INDICATIONS: THORACIC BACK PAIN/TOBACCO USE TECHNIQUE: 2 view(s) of the chest. COMPARISON: 11/30/2018. FINDINGS: Surgical changes and devices: None. Lungs and pleura: No pleural effusions or pneumothorax. Lungs are clear. Mediastinum: Mediastinal contours are normal. Heart size is normal. Bones and chest wall: No suspicious bony abnormalities. Soft tissues appear unremarkable. IMPRESSION: 1. No acute cardiopulmonary disease. Reviewed by: Dyllan Feng MD on 06/29/2021 2:22 AM PDT Approved by: Dyllan Feng MD on 06/29/2021 2:22 AM PDT Station ID: [id number]
== END 2021-06-28 23:59 | disposition home or self-care (01) ==
LOC: DI.S 08:00
PROVIDERS: ATTEND Registered Nurse
DX: M54.6 Pain in thoracic spine (principal); F17.200 Nicotine dependence, unspecified, uncomplicated

== ENCOUNTER 2021-08-07 08:40 | Outpatient (CLI) | payer BC ==
--- NOTE | 2021-08-08 07:49 | Mammography Report ---
BILATERAL DIGITAL SCREENING MAMMOGRAM 3D/2D: 08/07/2021 CLINICAL: Routine screening. Comparison is made to exams dated: 04/06/2017 mammogram and 08/23/2015 mammogram - [facility]. There are scattered fibroglandular elements in both breasts. No significant masses, calcifications, or other findings are seen in either breast. There has been no significant interval change. IMPRESSION: NEGATIVE There is no mammographic evidence of malignancy. A 1 year screening mammogram is recommended. This exam was interpreted at Station ID: [id number]. NOTE: For mammograms, a report in lay terms will be sent to the patient. Approximately 15% of breast malignancies will not be visualized mammographically. In the management of a palpable breast mass, a negative mammogram must not discourage biopsy of a clinically suspicious lesion. Electronically Signed By: Christiano gaspar/margi:08/07/2021 09:58:12 ACR BI-RADS Category 1: Negative 3341F PARENCHYMAL PATTERN: (A) - The breast(s) demonstrate(s) scattered fibroglandular densities. BI-RADS CATEGORY: (1) - 1 RECOMMENDATION: (ANNUAL) - Recommend routine annual screening mammography. [id number] 1 year screening LATERALITY: (B)
== END 2021-08-07 08:41 | disposition home or self-care (01) ==
LOC: DI.S 08:40
PROVIDERS: ATTEND Registered Nurse
DX: Z12.31 Encounter for screening mammogram for malignant neoplasm of breast (principal)

== ENCOUNTER 2021-11-20 10:25 | Emergency (ER) | payer BC ==
[2021-11-20 10:45] VITALS: BP 140/101
[2021-11-20 11:21] LABS: BASOPHILS # (AUTO) 0.1 10^3/uL (0.0-0.1); BASOPHILS % (AUTO) 0.4 %; EOSINOPHILS # (AUTO) 0.1 10^3/uL (0.0-0.7); EOSINOPHILS % (AUTO) 0.9 %; HCT - HEMATOCRIT 42.5 % (37.0-47.0); HGB - HEMOGLOBIN 14.4 g/dL (12.0-16.0); LYMPHOCYTES # (AUTO) 2.5 10^3/uL (1.5-3.5); LYMPHOCYTES % (AUTO) 21.5 %; MEAN CORPUSCULAR HEMOGLOBIN 30.1 pg (27.0-31.0); MEAN CORPUSCULAR HGB CONC 33.9 g/dL (32.0-36.0); MEAN CORPUSCULAR VOLUME 88.7 fL (81.0-99.0); MEAN PLATELET VOLUME 9.8 fL (7.9-10.8); MONOCYTES # (AUTO) 0.5 10^3/uL (0.0-1.0); NEUTROPHILS # (AUTO) 8.5 10^3/uL (1.5-6.6); NEUTROPHILS % (AUTO) 72.9 %; PLT - PLATELET COUNT 213 10^3/uL (130-450); RED BLOOD COUNT 4.79 10^6/uL (4.20-5.40); RED CELL DISTRIBUTION WIDTH 12.8 % (12.0-15.0); WHITE BLOOD COUNT 11.6 x10^3/uL (4.8-10.8)
[2021-11-20 11:33] LABS: ALBUMIN 4.5 g/dL (3.2-5.5); ALBUMIN/GLOBULIN RATIO 1.4 (1.0-2.2); BILIRUBIN,TOTAL 0.8 mg/dL (0.2-1.0); CALCIUM 9.8 mg/dL (8.5-10.3); CREATININE 0.8 mg/dL (0.4-1.0); POTASSIUM 3.7 mmol/L (3.5-5.0); TOTAL PROTEIN 7.7 g/dL (6.7-8.2)
[2021-11-20 11:49] LABS: BILIRUBIN,URINE NEGATIVE (NEGATIVE); GLUCOSE, URINE (UA) NEGATIVE (NEGATIVE); KETONES,URINE (UA) NEGATIVE (NEGATIVE); LEUKOCYTE ESTERASE, URINE SMALL (NEGATIVE); NITRITE,URINE NEGATIVE (NEGATIVE); OCCULT BLOOD,URINE SMALL (NEGATIVE); PROTEIN,URINE NEGATIVE (NEGATIVE); UROBILINOGEN,URINE 0.2 (NORMAL) E.U./dL (NORMAL)
[2021-11-20 11:50] LABS: CLARITY,URINE CLEAR (CLEAR)
--- NOTE | 2021-11-20 11:50 | XRAY Report ---
PROCEDURE: Knee 4 View RT INDICATIONS: Trauma TECHNIQUE: 4 views of the right knee(s) were acquired. COMPARISON: None. FINDINGS: Bones: No fractures or dislocations. No suspicious bony lesions. Medial knee hemiarthroplasty is p resent. Hardware is intact without evidence of hardware fracture or periprosthetic lucency to suggest loosening. Soft tissues: Mild joint effusion. No suspicious soft tissue calcifications. IMPRESSION: No visualized acute fracture or dislocation. However, occult injury cannot be excluded. Recommend inez rt interval imaging follow-up in 7-10 days as clinically indicated for additional evaluation. Reviewed by: Lenore Huizar MD on 11/20/2021 11:49 AM PDT Approved by: Lenore Huizar MD on 11/20/2021 11:49 AM PDT Station ID: [id number]
[2021-11-20 12:08] LABS: BACTERIA,URINE Few /HPF (None Seen); MUCUS,URINE Few Strands; SQUAMOUS EPITHELIAL CELL,UR FEW Squamous (<= Few); WBC,URINE >25 /HPF (0-5)
[2021-11-20] MEDS ORDERED: SODIUM CHLORIDE 0.9% 1,000 ML IV STA (12:58)
[2021-11-20] MEDS ORDERED: LIDOCAINE 1%-EPI 1:100000 20 ML MDV SUBQ STA (12:58)
[2021-11-20] MEDS ORDERED: HYDROmorphone 1 MG/ML CARPUJECT IVP STA ×2 (12:58→15:06)
[2021-11-20] MEDS ORDERED: cefTRIAXone 1 GM in SODIUM CHLORIDE 0.9% MINIBAG 100 ML IV STA (12:59)
--- NOTE | 2021-11-20 13:00 | ED Physician Documentation ---
History of Present Illness - Stated complaint Stated Complaint: R KNEE SWOLLEN - Chief complaint Chief Complaint: General - History obtained from History obtained from: Patient - Additonal information Additional information: She is 7 years out from a right knee replacement, medial approach only. She had a dental cleaning about a week ago with a single dose of prophylactic antibiotic, sounds like Keflex per her prescription description. Starting today she has had both right flank pain that is severe as well as right knee pain and swelling that is severe with chills and a headache. She took 2 negative to test for COVID at home today. Review of Systems Constitutional: reports: Chills. 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 - Present Medications Home Medications: Ambulatory Orders Medication Instructions Recorded Confirmed Gabapentin [Neurontin] 300 mg PO TID 05/13/17 05/13/17 Doxycycline Hyclate 100 mg PO BID #14 tablet 07/24/17 predniSONE [Prednisone] 40 mg PO DAILY #10 tablet 07/24/17 Carbamazepine [Equetro] 200 mg PO BID #60 cpmp.12hr 09/07/18 Albuterol Sulf [Ventolin Hfa 1 - 2 puffs INH Q4HR PRN #1 inhaler 11/28/18 Inhaler] Benzonatate [Tessalon Perle] 100 - 200 mg PO TID PRN #30 capsule 11/28/18 Doxycycline Hyclate 100 mg PO BID #14 capsule 11/28/18 Oxycodone HCl/Acetaminophen 1 - 2 each PO Q6H PRN #14 tablet 11/28/18 [Percocet 5-325 mg Tablet] predniSONE [Deltasone] 20 mg PO [id number] #21 tab 11/28/18 - Allergies Allergies/Adverse Reactions: Allergies Allergy/AdvReac Type Severity Reaction Status Date / Time citalopram hydrobromide * AdvReac Severe Hives Verified 11/20/21 10:45 [From Celexa] prochlorperazine maleate * AdvReac Intermediate Anxiety Verified 11/20/21 10:45 [From Compazine] - Social History Does the pt smoke?: Yes Smoking Status: Current every day smoker Does the pt drink ETOH?: Yes Does the pt have substance abuse?: No - Immunizations Immunizations are current?: Yes - POLST Patient has POLST: No PD ED PE NORMAL - Vitals Vital signs reviewed: Yes - General General: Alert and oriented X 3, No acute distress - Abdomen Abdomen: Non tender, Other (Right flank tenderness) - Extremities Extremities: Other (The right knee is warm but not hot with limited range of motion due to pain, but I am able to range it. There is a small effusion.) - Neuro Neuro: Alert and oriented X 3, Normal speech Results - Vitals Vitals: Vital Signs - 24 hr 11/20/21 10:38 Temperature 36.5 C Heart Rate 83 Respiratory 16 Rate Blood Pressure 140/101 H O2 Saturation 98 Oxygen O2 Source Room air - Labs Labs: Microbiology 11/20/21 13:35 Body Fluid Culture - Preliminary Synovial Fluid Laboratory Tests 11/20/21 11/20/21 11/20/21 11:17 11:17 11:40 WBC 11.6 H RBC 4.79 Hgb 14.4 Hct 42.5 MCV 88.7 MCH 30.1 MCHC 33.9 RDW 12.8 Plt Count 213 MPV 9.8 Neut # (Auto) 8.5 H Lymph # (Auto) 2.5 [place] # (Auto) 0.5 Eos # (Auto) 0.1 Baso # (Auto) 0.1 Absolute Nucleated RBC 0.00 Nucleated RBC % 0.0 Sodium 137 Potassium 3.7 Chloride 103 Carbon Dioxide 25 Anion Gap 9.0 BUN 17 Creatinine 0.8 Estimated GFR (MDRD) 73 L Glucose 104 H Calcium 9.8 Total Bilirubin 0.8 AST 23 ALT 27 Alkaline Phosphatase 56 Total Protein 7.7 Albumin 4.5 Globulin 3.2 Albumin/Globulin Ratio 1.4 Lipase 31 Urine Color LT. YELLOW Urine Clarity CLEAR Urine pH 6.0 Ur Specific [place] >=1.030 H Urine Protein NEGATIVE Urine Glucose (UA) NEGATIVE Urine Ketones NEGATIVE Urine Occult Blood SMALL H Urine Nitrite NEGATIVE Urine Bilirubin NEGATIVE Urine Urobilinogen 0.2 (NORMAL) Ur Leukocyte Esterase SMALL H Urine RBC 6-10 H Urine WBC >25 H Ur Squamous Epith Cells FEW Squamous Urine Bacteria Few Urine Mucus Few Strands Ur Microscopic Review INDICATED Urine Culture Comments INDICATED Fluid Source Fluid Color Fluid Clarity Fluid WBC Fluid RBC Fluid Neutrophils % Fluid Lymphocytes % Fluid Monocytes % Fld Mesothelial Cell % Fluid Crystals 11/20/21 11/20/21 13:35 13:35 WBC RBC Hgb Hct MCV MCH MCHC RDW Plt Count MPV Neut # (Auto) Lymph # (Auto) [place] # (Auto) Eos # (Auto) Baso # (Auto) Absolute Nucleated RBC Nucleated RBC % Sodium Potassium Chloride Carbon Dioxide Anion Gap BUN Creatinine Estimated GFR (MDRD) Glucose Calcium Total Bilirubin AST ALT Alkaline Phosphatase Total Protein Albumin Globulin Albumin/Globulin Ratio Lipase Urine Color Urine Clarity Urine pH Ur Specific [place] Urine Protein Urine Glucose (UA) Urine Ketones Urine Occult Blood Urine Nitrite Urine Bilirubin Urine Urobilinogen Ur Leukocyte Esterase Urine RBC Urine WBC Ur Squamous Epith Cells Urine Bacteria Urine Mucus Ur Microscopic Review Urine Culture Comments Fluid Source KNEE Fluid Color YELLOW Fluid Clarity CLOUDY Fluid WBC [id number] Fluid RBC 4000 Fluid Neutrophils % 92 Fluid Lymphocytes % 3 Fluid Monocytes % 5 Fld Mesothelial Cell % 0 Fluid Crystals NONE SEEN Procedures - Arthrocentesis Joint: Knee, Right Preparation: Sterile prep and drape Anesthesia: Lidocaine 1% Fluid: Sent for cell count, Cloudy, Sent for crystals, Sent for culture, Fluid obtained - cc (8ml) PD MEDICAL DECISION MAKING - ED course ED course: 61-year-old woman presents with flank pain and also knee pain starting yesterday with some systemic symptoms but normal vital signs and no fever. She does have a positive urinalysis and a white count of 11.6 thousand. There was a concern for an infected knee joint so an arthrocentesis was done, initial Gram stain was positive for gram-positive cocci, she had already received IV Rocephin at this point and vancomycin was added. No orthopedist on-call here today and she requested that we call her prior orthopedist, Dr. Flash Carr for consultation. I spoke with him at approximately 4:09 PM and he recommends transfer to the care of the hospitalist at [facility]. However during that process the patient decided to sign out AGAINST MEDICAL ADVICE. She understands the diagnosis, the likely need for surgery, and the potential for prolonged disability, potentially even by delaying treatment. She says she needs to go home and manage a few things before she can consider being admitted. I encouraged her to stay to finish her IV antibiotics and for an appropriate transfer to [facility]. Departure - Departure Disposition: 07 Against Medical Advice Clinical Impression: Pyelonephritis Infected prosthetic knee joint Qualifiers: Encounter type: initial encounter Qualified Code(s): T84.59XA - Infection and inflammatory reaction due to other internal joint prosthesis, initial encounter; Z96.659 - Presence of unspecified artificial knee joint Condition: Serious Record reviewed to determine appropriate education?: Yes Instructions: Pyelonephritis Dc Comments: You are seen today for both pyelonephritis, and an infected knee joint. The infected knee joint particularly needs inpatient therapy with IV antibiotics. He did receive a dose of Rocephin and vancomycin here and there are cultures pending from your knee joint. We have encouraged you to stay here for a medically and legally appropriate transfer to [facility] under the care of your surgeon. However you are signing out AGAINST MEDICAL ADVICE. Return anytime for new or worsening symptoms.
[2021-11-20 14:38] LABS: BF SOURCE KNEE
[2021-11-20 14:39] LABS: BF CLARITY CLOUDY; BF COLOR YELLOW; CC,BF RBC 4000 /mm^3; CC,BF WBC 19840 /mm^3
[2021-11-20] MEDS ORDERED: VANCOMYCIN INJ 2 GM in SODIUM CHLORIDE 0.9% 500 ML IV STA (14:50)
[2021-11-20] MEDS ORDERED: KETOROLAC 15 MG/ML VIAL IVP STA (15:06)
[2021-11-20 15:21] LABS: LYMPHOCYTES %,BODY FLUID 3 %; MONOCYTES %,BODY FLUID 5 %; NEUTROPHILS %, BF 92 %
[2021-11-20 15:22] LABS: MESOTHELIAL %, BF 0 %
== END 2021-11-20 17:11 | disposition left against medical advice (07) ==
LOC: ED 10:25
DX: N12 Tubulo-interstitial nephritis, not specified as acute or chronic (principal); T84.59XA Infection and inflammatory reaction due to other internal joint prosthesis, initial encounter; Z96.651 Presence of right artificial knee joint; F17.200 Nicotine dependence, unspecified, uncomplicated
CPT/HCPCS: 20610; 36415; 73564; 80053; 81001; 83690; 85025; 87070; 87086; 87205; 89051; 89060; 96365; 96367; 96375; 96376; 99283; 99284; J1170; J3370; 81003

== ENCOUNTER 2022-08-05 08:00 | Outpatient (CLI) | payer BC ==
--- NOTE | 2022-08-05 15:00 | XRAY Report ---
PROCEDURE: Chest 2 View X-Ray INDICATIONS: LEFT LOWER LOBE PNEUMONIA TECHNIQUE: 2 views of the chest were acquired. COMPARISON: 06/28/2021 FINDINGS: Surgical changes and devices: None. Lungs and pleura: No dense consolidation or pleural effusion. Mediastinum: Heart size is normal. Bones and chest wall: No acute or suspicious osseous finding. IMPRESSION: No acute radiographic abnormality. Reviewed by: Germán Rodriguez MD on 08/05/2022 2:58 PM PDT Approved by: Germán Rodriguez MD on 08/05/2022 2:58 PM PDT Station ID: [id number]
== END 2022-08-05 23:59 | disposition home or self-care (01) ==
LOC: DI.S 08:00
PROVIDERS: ATTEND Physician Assistant
DX: J18.9 Pneumonia, unspecified organism (principal)

== ENCOUNTER 2023-03-03 09:04 | Outpatient (CLI) | payer BC ==
[2023-03-03 09:29] LABS: BASOPHILS % (AUTO) 0.6 %; EOSINOPHILS # (AUTO) 0.1 10^3/uL (0.0-0.7); EOSINOPHILS % (AUTO) 1.4 %; HCT - HEMATOCRIT 41.2 % (37.0-47.0); HGB - HEMOGLOBIN 13.3 g/dL (12.0-16.0); LYMPHOCYTES # (AUTO) 2.3 10^3/uL (1.5-3.5); LYMPHOCYTES % (AUTO) 35.1 %; MEAN CORPUSCULAR HEMOGLOBIN 28.6 pg (27.0-31.0); MEAN CORPUSCULAR HGB CONC 32.3 g/dL (32.0-36.0); MEAN CORPUSCULAR VOLUME 88.6 fL (81.0-99.0); MEAN PLATELET VOLUME 9.8 fL (7.9-10.8); MONOCYTES # (AUTO) 0.4 10^3/uL (0.0-1.0); MONOCYTES % (AUTO) 6.1 %; NEUTROPHILS # (AUTO) 3.7 10^3/uL (1.5-6.6); NEUTROPHILS % (AUTO) 56.5 %; PLT - PLATELET COUNT 235 10^3/uL (130-450); RED BLOOD COUNT 4.65 10^6/uL (4.20-5.40); RED CELL DISTRIBUTION WIDTH 13.1 % (12.0-15.0); WHITE BLOOD COUNT 6.6 x10^3/uL (4.8-10.8)
[2023-03-03 09:39] LABS: ALBUMIN 4.5 g/dL (3.2-5.5); ALBUMIN/GLOBULIN RATIO 1.6 (1.0-2.2); ALKALINE PHOSPHATASE 67 IU/L (42-121); ALT ALANINE AMINOTRANSFERASE 46 IU/L (10-60); AST ASPARTATE AMINOTRANSFERASE 37 IU/L (10-42); BILIRUBIN,TOTAL 0.7 mg/dL (0.2-1.0); BUN - BLOOD UREA NITROGEN 11 mg/dL (6-20); CALCIUM 9.7 mg/dL (8.5-10.3); CARBON DIOXIDE - CO2 28 mmol/L (21-32); CHLORIDE 106 mmol/L (101-111); CHOL/HDL RATIO 3.4 (<4.4); CHOLESTEROL 235 mg/dL; CREATININE 0.7 mg/dL (0.6-1.3); CRP - C-REACTIVE PROTEIN < 0.5 mg/dL (<0.5); GFR - MDRD 85 (>89); GLUCOSE 100 mg/dL (74-104); HDL CHOLESTEROL 69 mg/dL; LDL CHOLESTEROL,CALCULATED 118 mg/dL; LDL/HDL RATIO 1.7 (<4.4); POTASSIUM 3.8 mmol/L (3.5-4.5); SODIUM 143 mmol/L (135-145); TOTAL PROTEIN 7.4 g/dL (6.4-8.9); TRIGLYCERIDES 238 mg/dL (48-352); VLDL CHOLESTEROL 48 mg/dL
[2023-03-03 09:49] LABS: THYROID STIMULATING HORMONE 3.09 uIU/mL (0.34-5.60)
== END 2023-03-03 09:05 | disposition home or self-care (01) ==
LOC: LAB 09:04
PROVIDERS: ATTEND Nurse Practitioner
DX: K76.0 Fatty (change of) liver, not elsewhere classified (principal); Z79.899 Other long term (current) drug therapy; Z13.220 Encounter for screening for lipoid disorders; G62.9 Polyneuropathy, unspecified; Q63.2 Ectopic kidney; M25.50 Pain in unspecified joint; F41.9 Anxiety disorder, unspecified; F32.A Depression, unspecified
CPT/HCPCS: 36415; 80053; 80061; 82607; 83721; 84443; 85025; 85651; 86140

== ENCOUNTER 2023-03-03 09:16 | Day surgery (SDC) | payer BC ==
[2023-03-03] MEDS ORDERED: LACTATED RINGERS 1,000 ML IV ONE ×2 (09:25)
[2023-03-03] MEDS ORDERED: PROPOFOL 500 MG/50 ML 500 MG/50 ML VIAL ONE (10:47)
--- NOTE | 2023-03-03 11:04 | ANESTHESIA ---
Pre-Anesthesia VS, & Labs - Diagnosis screening - Procedure colonoscopy Vital Signs: Temp Pulse Resp BP Pulse Ox O2 Flow Rate 36.3 C L 55 L 14 120/88 H 98 03/03/23 09:47 03/03/23 09:47 03/03/23 09:47 03/03/23 09:47 03/03/23 09:47 Height: 5 ft 7 in Weight (kg): 99 kg Body Mass Index: 34.2 BMI Classification: Obese - NPO >8 hours - Is Patient ?: No - Lab Results Lab results reviewed: Yes Home Medications and Allergies Home Medications: Ambulatory Orders Acetaminophen [Tylenol] 1,000 mg ORAL Q6HR PRN 03/02/23 Acetaminophen [Tylenol] 1,000 mg ORAL Q6HR PRN 03/02/23 Allergies/Adverse Reactions: Allergies Allergy/AdvReac Type Severity Reaction Status Date / Time citalopram hydrobromide * AdvReac Severe Hives Verified 03/02/23 13:49 [From Celexa] zinc AdvReac Severe Nausea Verified 03/02/23 13:49 prochlorperazine maleate * AdvReac Intermediate Anxiety Verified 03/02/23 13:49 [From Compazine] Anes History & Medical History - Anesthetic History Anesthesia Complications: reports: No previous complications Family history of Anesthesia Complications: Denies Family history of Malignant Hyperthermia: Denies - Medical History Cardiovascular: reports: None Pulmonary: reports: Pneumonia, Sleep apnea Gastrointestinal: reports: GERD, Colon polyps Urinary: reports: None Neuro: reports: None Musculoskeletal: reports: Chronic back pain Endocrine/Autoimmune: reports: None Skin: reports: None Smoking Status: Current every day smoker - Surgical History General: reports: Cholecystectomy, Appendectomy, Colonoscopy Gynecologic: reports: Hysterectomy Orthopedic: reports: Knee replacement, Spine surgery Exam General: Alert, Oriented x3, Cooperative Dental: WNL Mouth Openin Fingerbreadth Neck Mobility: Normal Mallampati classification: II Thyromental Distance: 4-6 cm Respiratory: Lungs clear, Normal breath sounds, No respiratory distress Cardiovascular: Regular rate Neurological: Normal speech Mental/Cognitive Status: Alert/Oriented X3, Normal for patient Cognitive Status: Within normal limits Plan Anesthesia Type: Total IV Consent for Procedure(s) Verified and Reviewed: Yes Code Status: Attempt Resuscitation ASA classification: 2-Mild systemic disease Is this case an emergency?: No
[2023-03-03] MEDS ORDERED: MIDAZOLAM 2 MG/2 ML VIAL ONE (11:05)
[2023-03-03] MEDS ORDERED: LIDOCAINE-PF 2% 10 ML AMP SUBQ ONE (11:35)
[2023-03-03] MEDS ORDERED: LACTATED RINGERS 400 ML IV ONE (12:03)
[2023-03-03 12:38] VITALS: BP 137/78; O2SAT 99
--- NOTE | 2023-03-03 13:01 | ANESTHESIA POST OP EVALUATION ---
Anesthesia Post Eval - Post Anesthesia Eval Vitals: Last Vital Signs Temp 36.2 C L 03/03/23 12:31 Pulse 58 L 03/03/23 12:31 Resp 20 03/03/23 12:31 BP 137/78 H 03/03/23 12:31 Pulse Ox 99 03/03/23 12:31 O2 Flow Rate CV Function Including HR & BP: Stable Pain Control: Satisfactory Nausea & Vomiting: Negative Mental Status: Baseline Respiratory Status: Airway Patent Hydration Status: Satisfactory Anesthesia Complications: None
== END 2023-03-03 09:17 | disposition home or self-care (01) ==
LOC: SDS 09:16
PROVIDERS: ATTEND Surgery
PROC: 0DBP8ZZ Excision of Rectum, Via Natural or Artificial Opening Endoscopic (ICD-10-PCS; principal; 2023-03-03 11:15)
DX: Z12.11 Encounter for screening for malignant neoplasm of colon (principal); D12.8 Benign neoplasm of rectum; K76.0 Fatty (change of) liver, not elsewhere classified; G62.9 Polyneuropathy, unspecified; Q63.2 Ectopic kidney; M25.50 Pain in unspecified joint; F41.9 Anxiety disorder, unspecified; Z79.899 Other long term (current) drug therapy; Z13.220 Encounter for screening for lipoid disorders; Z80.0 Family history of malignant neoplasm of digestive organs; E66.9 Obesity, unspecified; Z68.34 Body mass index [BMI] 34.0-34.9, adult; F17.200 Nicotine dependence, unspecified, uncomplicated
CPT/HCPCS: 36415; 45385; 80053; 80061; 82607; 84443; 85025; 85651; 86140; J7120; 83721